=== PATIENT | female | born 1955 | race Caucasian/White ===

== ENCOUNTER 2018-03-04 22:17 | Emergency (ER) | payer OTHER, MEDICAID ==
[2018-03-05] MEDS: hydrALAzine 20 MG INJ IV (00:26)
[2018-03-05 00:27] LABS: ADD MAN DIFF? NO
[2018-03-05 00:32] LABS: BASOPHILS % 0.4 % (0.0-2.0); EOSINOPHILS # 0.1 10^3/ul (0.0-0.5); EOSINOPHILS % 0.6 % (0.0-7.0); HEMOGLOBIN 13.7 g/dl (12.0-16.0); LYMPHOCYTES # 1.2 10^3/ul (0.8-2.9); LYMPHOCYTES % 13.7 % (15.0-51.0); MEAN CORPUSCULAR HEMOGLOBIN 30.4 pg (29.0-33.0); MEAN CORPUSCULAR HGB CONC 34.3 g/dl (32.0-37.0); MEAN CORPUSCULAR VOLUME 88.7 fl (82.0-101.0); MEAN PLATELET VOLUME 9.1 fl (7.4-10.4); MONOCYTE # 0.4 10^3/ul (0.3-0.9); MONOCYTES % 4.3 % (0.0-11.0); NEUTROPHIL # 7.3 10^3/ul (1.6-7.5); NEUTROPHILS % 80.8 % (39.0-77.0); PLATELET COUNT 303 10^3/UL (140-415); RED BLOOD COUNT 4.51 10^6/ul (4.20-5.40); RED CELL DISTRIBUTION WIDTH 12.6 % (11.5-14.5)
[2018-03-05] MEDS: SILVER NITRATE SWAB TOP (00:39)
[2018-03-05 00:57] LABS: ANION GAP 14 (8-16); BLOOD UREA NITROGEN 14 mg/dl (7-20); CALCIUM 9.8 mg/dl (8.4-10.2); CARBON DIOXIDE 25 mmol/L (21-31); CHLORIDE 105 mmol/L (97-110); CREATININE 0.76 mg/dl (0.44-1.00); GLUCOSE 144 mg/dl (70-220); POTASSIUM 4.3 mmol/L (3.5-5.1); SODIUM 140 mmol/L (135-144)
[2018-03-05 00:59] LABS: INR 1.04; PROTIME 13.7 Sec (11.9-14.9); PT RATIO 1.1
[2018-03-05 01:00] LABS: PARTIAL THROMBOPLASTIN TIME 32.7 Sec (25.0-35.0)
[2018-03-05 01:12] LABS: TROPONIN-I < 0.010 ng/ml (0.000-0.120)
[2018-03-05] MEDS ORDERED: ONDANSETRON 4 MG INJ (01:16)
[2018-03-05] MEDS: ONDANSETRON 4 MG INJ IV (02:11)
== END 2018-03-05 03:29 | disposition home or self-care (01) ==
LOC: FTE 22:17 → E/R 03-05 03:29
DX: L76.22 Postprocedural hemorrhage of skin and subcutaneous tissue following other procedure (principal); I10 Essential (primary) hypertension
CPT/HCPCS: 36415; 71045; 80048; 84484; 85025; 85610; 85730; 93005; 96374; 96375; 99285-25